=== PATIENT | male | born 1990 | race African-American/Black ===

== ENCOUNTER 2020-09-18 23:04 | Emergency (ER) | payer MEDICAID ==
--- NOTE | 2020-09-19 00:20 | ER Document Report ---
ED Extremity Problem, Lower - General Chief Complaint: Foot Injury Stated Complaint: FOOT PROBLEM, HOLE IN FOOT Time Seen by Provider: 09/19/20 00:12 Mode of Arrival: Ambulatory Information source: Patient - HPI Patient complains to provider of: Pain Location: Foot Notes: Patient with complaints of bilateral foot pain. The patient states that he stands on his feet a lot and works long shifts at the [employer]. He states that he has been getting some calluses on bilateral feet pain and tingling. No fever. No redness. He denies any traumatic injury. States that he tried to make an podiatry appointment but he was instructed to come to the ER to get a referral. He denies a history of diabetes. He denies abdominal pain. No nausea, vomiting, diarrhea. No rash. No numbness, tingling, weakness. Pain is constant, moderate, worse with walking and standing, better with rest. No other complaints. - Related Data Allergies/Adverse Reactions: No Known Allergies Allergy (Unverified 09/19/20 00:12) Past Medical History - Social History Smoking Status: Former Smoker Frequency of alcohol use: None Drug Abuse: Marijuana Family History: Reviewed & Not Pertinent Review of Systems - Review of Systems -: Yes All other systems reviewed and negative Physical Exam - Vital signs Vitals: Temp Pulse Resp BP Pulse Ox 98.3 F 55 L 16 139/85 H 100 09/18/20 23:10 09/18/20 23:10 09/18/20 23:10 09/18/20 23:10 09/18/20 23:10 - Notes Notes: GENERAL: alert, cooperative, nontoxic, no distress. HEAD: normocephalic, atraumatic EYES: conjunctiva pink without discharge, no external redness or swelling. EARS: no external swelling, no external redness NOSE: atraumatic, no external swelling MOUTH/THROAT: mucous membranes moist and pink NECK: soft, supple, full range of motion, no meningismus. CHEST: no distress, lungs clear and equal throughout. No wheezing, rales, rhonchi. CARDIAC: regular rate and rhythm, no murmur EXTREMITIES: full range of motion of all extremities. No redness, no swelling. Corns/calluses noted to the bilateral feet on the plantar aspect. There is no surrounding erythema. Minimal tenderness to palpation. No drainage. No foreign body. Normal pulse and sensation distally. NEURO: alert and oriented 3, no focal deficits, full range of motion of all extremities. PYSCH: appropriate mood, affect. Patient is cooperative. SKIN: pink, warm, dry, no rash. Course - Re-evaluation Re-evalutation: 09/19/20 00:19 Patient is nontoxic-appearing stable vitals. Here with complaints of bilateral feet pain. The patient states he stands on his feet for long hours at work and has some corns and calluses that are painful. He tried to see a residential monitor but was told to come to the ER for referral. He denies any traumatic injury. On exam the patient is noted to have corns and calluses to the bilateral plantar aspect of the feet. There is no signs of infection at this time. Neurovascular he is intact. Patient be discharged home with a prescription for NSAIDs and referrals to podiatry for follow-up. Follow-up sooner for worsening pain, f ever, redness, drainage, numbness, tingling, weakness, any further concerns. The patient's emergency department workup and current diagnosis were explained to the patient and or family. Follow-up instructions were provided. Medications if prescribed were discussed. Instructions for when to return to the emergency department including specific worrisome symptoms were discussed with the patient and/or family. - Vital Signs Vital signs: Temp Pulse Resp BP Pulse Ox 98.3 F 55 L 16 139/85 H 100 09/18/20 23:10 09/18/20 23:10 09/18/20 23:10 09/18/20 23:10 09/18/20 23:10 - Laboratory Results Critical Laboratory Results Reviewed: No Critical Results - Radiology Results Critical Radiology Results Reviewed: No Critical Results Discharge - Discharge Clinical Impression: Andreas of foot, Foot pain, bilateral Condition: Stable Disposition: HOME, SELF-CARE Instructions: Foot Laceration ([facility]) Additional Instructions: Take medication as prescribed. Keep wounds clean and dry. Follow-up with podiatry at the next available appointment. Follow-up sooner for worsening pain, fever, redness, drainage, any further concerns. Prescriptions: Diclofenac Sodium [Voltaren 50 Mg Tablet.] 50 mg PO BID #20 tablet.dr Forms: Return to Work Referrals: [facility] [Provider Group] - Follow up as needed VINICIO BARRAZA DPM [ACTIVE STAFF] - Follow up as needed NATALIO HAWKINS DPM [ACTIVE STAFF] - Follow up as needed YING ESQUEDA DPM [ACTIVE STAFF] - Follow up as needed STEWART RICKETTS DPM [ACTIVE STAFF] - Follow up as needed
[2020-09-19 00:22] VITALS: BP 128/72
== END 2020-09-19 00:19 | disposition home or self-care (01) ==
LOC: ER 23:04
DX: L84 Corns and callosities (principal); M79.672 Pain in left foot; M79.671 Pain in right foot
CPT/HCPCS: 99283